=== PATIENT | female | born 1995 | race African-American/Black ===

== ENCOUNTER 2016-09-27 15:38 | Emergency (ER) | payer SELFPAY ==
[2016-09-27 19:38] LABS: CONTROL LINE UCG INT CTR LINE PRESENT
--- NOTE | 2016-09-27 21:00 | REPUSA ---
CLINICAL HISTORY: Headaches. TECHNIQUE: Multiple axial brain CT scan sections were obtained from base to vertex without contrast a dministration. COMMENTS: The study shows normal configuration of sella turcica. There are no intra or extra-axial collections. There is no mass effect or midline shift. There is no evidence of hematoma formation. No hydrocephal us is present. No abnormal calcifications are noted. No significant abnormalities are seen either in the posterior fossa or supratentorial compartment. The sinuses and mastoid air cells are patent. IMPRESSION: No evidence of acute intracranial pathology. Thank you for your kind referral of this patient.
--- NOTE | 2016-09-27 22:05 | EDDOCDS ---
Nurse's Notes [facility] Name: Radha Pina Age: 21 yrs Sex: Female : 1995 Arrival Date: 09/27/2016 Time: 15:38 Bed 6 Private MD: NO PRIMARY PHYSICIAN, . Diagnosis: Urinary tract infection, site not specified Presentation: 09/27 15:49 Presenting complaint: Patient states: I have spinal fluid that builds up into my head [facility] and I need it drained out. I get light headed when I stand up and I get back pain that makes it hard for me to move around. Acute neurological deficits are not present. Mechanism of Injury: No Mechanism of Injury. Adult Sepsis Screening: The patient does not have new or worsening altered mentation. Patient's respiratory rate is less than 22. Systolic blood pressure is greater than 100. Patient has a qSOFA score of 0- Negative Sepsis Screen. Suicide/Homicide risk assessment- the patient denies having any suicidal and/or homicidal ideations and does not present with any other emotional, behavioral or mental health complaints. 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 Transition of care: patient was not received from another setting of care. 15:49 Acuity: RADHA Level 3 [facility] 15:49 Method Of Arrival: Walkin/Carried/Asstd [facility] Triage Assessment: 15:53 General: Appears in no apparent distress, comfortable, obese, Behavior is cooperative. [facility] Pain: Location: head and back Pain currently is 9 out of 10 on a pain scale. Pt requests HIV screening. Order Generated. Neurological: Level of Consciousness is awake, alert, Oriented to person, place, time. Respiratory: Airway is patent Respiratory effort is even, unlabored, Respiratory pattern is regular, symmetrical. Musculoskeletal: Range of motion intact in all extremities. Historical: - Allergies: Bees; - Home Meds: 1. none - PMHx: Benign Intracranial Hypertension (pseudotumor ceribri); Obstructive Sleep apnea; GERD; - PSHx: Cholecystectomy; - Social history: Smoking status: Patient states was never smoker of tobacco. No barriers to communication noted. - Family history: Not pertinent. - : The pt / caregiver states he / she is not on anticoagulants. Home medication list is obtained from the patient. - Exposure Risk Screening:: None identified. Screenin:18 Screening information is obtained from the patient. Fall risk: No risks identified. js15 Assistance ADL's: requires no assistance with activities of daily living. Abuse/DV Screen: The patient / caregiver reports he/she is: not in a situation that causes fear, pain or injury. Nutritional screening: No deficits noted. Advance Directives: There is no active DNR order. home support is adequate. Assessment: 20:11 General: Appears in no apparent distress, Behavior is appropriate for age, cooperative. js15 Pain: Location: thoracic area and lumbar area Pain currently is 8 out of 10 on a pain scale. Neurological: Level of Consciousness is awake, alert, obeys commands, Oriented to person, place, time, Moves all extremities. Full function Gait is steady, Speech is normal, Facial symmetry appears normal, Reports dizziness. Cardiovascular: Capillary refill < 3 seconds Heart tones S1 S2 present Rhythm is regular. Respiratory: Airway is patent Respiratory effort is even, unlabored, Respiratory pattern is regular, symmetrical, Breath sounds are clear bilaterally. GI: Abdomen is obese, Bowel sounds present X 4 quads. Abd is soft and non tender X 4 quads. Derm: Skin is intact, is healthy with good turgor, Skin is normal. 21:20 Reassessment: Patient appears in no apparent distress at this time. Pt resting on js15 stretcher, using cell phone; respirations even and unlabored; skin normal, warm, dry. 22:00 Reassessment: Patient appears in no apparent distress at this time. Pt sitting up, js15 talking on cell phone; respirations even and unlabored; skin normal, warm, dry. Vital Signs: 15:41 BP 152 / 69; Pulse 90; Resp 18; Temp 98.9(O); Pulse Ox 98% on R/A; Weight 135.17 kg gr2 (M); Height 5 ft. 9 in. (175.26 cm) (R); Pain 5/10; 19:58 BP 146 / 91 (auto/); js15 20:00 Pulse 78 MON; Pulse Ox 98% ; js15 21:50 BP 130 / 60; Pulse 80; Resp 18; Temp 98.4(TE); Pulse Ox 98% on R/A; Pain 8/10; william 15:41 Body Mass Index 44.01 (135.17 kg, 175.26 cm) gr2 Vitals: 15:41 Log In Time: September 27, 2016 at 15:41. gr2 21:57 HIV Screen Result: Negative. jf3 ED Course: 15:40 Patient visited by Drew Caceres. gr2 15:40 Patient moved to Waiting gr2 15:41 NO PRIMARY PHYSICIAN, . is Private Physician. gr2 15:43 Patient visited by Drew Caceres. gr2 15:43 Patient moved to Pre RCE gr2 15:51 Triage Initiated cjh 18:53 Patient moved to Triage 3 kr3 19:05 Katina Estevez PA-C is PHCP. dt4 19:05 Edd Castaneda DO is Attending Physician. dt4 19:05 Patient visited by Katina Estevez PA-C. dt4 19:21 Patient moved to TR2 cz 19:25 UCG- In Lab Sent. jf3 19:25 UA Sent. jf3 19:43 Patient moved to 6 cz 20:09 Edd Castaneda DO is Attending Physician. cs11 20:10 Patient visited by Maura Massey RN. js15 20:18 The patient / caregiver is instructed regarding the plan of care and ED course. js15 20:44 [facility] was scanned into [employer] and attached to record. gjb 21:09 CT Head Without Contrast Returned. EDMS 21:15 Patient visited by Alice Miller PCA. william 21:40 Andrés Shoemaker is Referral Physician. cs11 21:50 Patient visited by Alice Miller PCA. william 22:00 No IV's were initiated during this patient's visit. No procedures done that require [facility] assistance. Order Results: Lab Order: UA; SPEC'M 09/27/16 19:22 Test: APPEARANCE, URINE; Value: CLOUDY; Range: CLEAR; Abnormal: Above high normal; Status: F Test: COLOR, URINE; Value: SAYDA; Range: YELLOW; Status: F Test: PH,URINE; Value: 5.0; Range: 5.0-9.0; Units: UNITS; Status: F Test: SPECIFIC GRAVITY URINE AUTO; Value: 1.016; Range: 1.002-1.035; Status: F Test: PROTEIN, URINE AUTO; Value: 1+; Range: NEGATIVE; Abnormal: Above high normal; Units: mg/dL; Status: F Test: GLUCOSE, URINE (UA) AUTO; Value: NEGATIVE; Range: NEGATIVE; Units: mg/dL; Status: F Test: KETONE, URINE AUTO; Value: NEGATIVE; Range: NEGATIVE; Units: mg/dL; Status: F Test: UROBILINOGEN, URINE AUTO; Value: 0.2; Range: 0.0-2.0; Units: mg/dL; Status: F Test: BILIRUBIN, URINE AUTO; Value: NEGATIVE; Range: NEGATIVE; Status: F Test: NITRITE, URINE AUTO; Value: NEGATIVE; Range: NEGATIVE; Status: F Test: LEUKOCYTE ESTERASE, URINE AUTO; Value: 3+; Range: NEGATIVE; Abnormal: Above high normal; Status: F Test: BLOOD, URINE BLOOD; Value: 3+; Range: NEGATIVE; Abnormal: Above high normal; Status: F Test: SPERM, URINE AUTO; Range: NONE; Status: I Test: WBC, URINE AUTO; Value: 62; Range: 0-3; Abnormal: Above high normal; Units: /HPF; Status: F Test: RBC, URINE AUTO; Value: 11; Range: 0-3; Abnormal: Above high normal; Units: /HPF; Status: F Test: BACTERIA, URINE AUTO; Value: 3+; Range: NEGATIVE; Abnormal: Above high normal; Status: F Test: SQUAMOUS EPITHELIAL CELL UR AU; Value: 82; Range: 0-6; Units: /HPF; Status: F Test: MUCUS, URINE; Value: SMALL; Range: NEGATIVE; Status: F Test: HYALINE CAST, URINE AUTO; Value: 0; Range: 0-1; Units: /LPF; Status: F Lab Order: UCG- In Lab; SPEC'M 09/27/16 19:22 Test: URINE PREG TEST; Value: NEGATIVE; Range: NEGATIVE; Status: F Radiology Order: CT Head Without Contrast Test: CT Head Without Contrast REASON FOR EXAMINATION: headache; ; CLINICAL HISTORY: Headaches.; TECHNIQUE: Multiple axial brain CT scan sections were obtained from base to vertex without contrast a; dministration.; COMMENTS:; The study shows normal configuration of sella turcica. There are no intra or extra-axial collections.; There is no mass effect or midline shift. There is no evidence of hematoma formation. No hydrocephal; us is present. No abnormal calcifications are noted.; No significant abnormalities are seen either in the posterior fossa or supratentorial compartment.; The sinuses and mastoid air cells are patent.; IMPRESSION:; No evidence of acute intracranial pathology.; Thank you for your kind referral of this patient.; ; Outcome: 21:42 Discharge ordered by Provider. cs11 22:00 Discharge Assessment: Patient awake, alert and oriented x 3. No cognitive and/or js15 functional deficits noted. Patient verbalized understanding of disposition instructions. patient administered narcotics - no. The following High Risk Discharge criteria are identified: None. Discharged to home ambulatory. Condition: unchanged. Discharge instructions given to patient, Instructed on discharge instructions, follow up and referral plans. medication usage, Demonstrated understanding of instructions, medications, Pt was receptive of discharge instructions/ teaching. Prescriptions given X 1. CT Study completed. Property sent home with patient. 22:03 Patient left the ED. js15 Signatures: Dispatcher [employer] EDMS Storm Shepherd RN RN cz Maida McclendonRN RN kr3 Alice Miller, DESKTOP TECHNICIAN DESKTOP TECHNICIAN Karma NixRN RN [facility] Edd Castaneda, DO cs11 Drew Caceres gr2 Katina Estevez PA-C PA-C dt4 Maura MasseyRN RN js15 Shaquille Alvarado,DEMOND RN jf3 Marcela Olmos MTDD
--- NOTE | 2016-09-27 22:05 | EDDOCDS ---
Physician Documentation [facility] Name: Radha Pina Age: 21 yrs Sex: Female : 1995 Arrival Date: 09/27/2016 Time: 15:38 Bed 6 Private MD: NO PRIMARY PHYSICIAN, . Disposition: 09/27/16 21:42 Discharged to Home/Self Care. Impression: Urinary tract infection, site not specified. - Condition is Stable. - Prescriptions for Cipro 500 mg Oral Tablet - take 1 tablet by ORAL route every 12 hours; 10 tablet. - Medication Reconciliation, Local Pharmacy Hours form. - Follow up: Andrés Shoemaker; When: Call to arrange an appointment; Reason: Recheck today's complaints. - Problem is new. - Symptoms are unchanged. - Notes: follow with neurologist for the pseudotumor cerebri you were told you had in 2013. Historical: - Allergies: Bees; - Home Meds: 1. none - PMHx: Benign Intracranial Hypertension (pseudotumor ceribri); Obstructive Sleep apnea; GERD; - PSHx: Cholecystectomy; - Social history: Smoking status: Patient states was never smoker of tobacco. No barriers to communication noted. - Family history: Not pertinent. - : The pt / caregiver states he / she is not on anticoagulants. Home medication list is obtained from the patient. - Exposure Risk Screening:: None identified. Vital Signs: 09/27 15:41 BP 152 / 69; Pulse 90; Resp 18; Temp 98.9(O); Pulse Ox 98% on R/A; Weight 135.17 kg / gr2 298 lbs (M); Height 5 ft. 9 in. (175.26 cm) (R); Pain 5/10; 19:58 BP 146 / 91 (auto/); js15 20:00 Pulse 78 MON; Pulse Ox 98% ; js15 21:50 BP 130 / 60; Pulse 80; Resp 18; Temp 98.4(TE); Pulse Ox 98% on R/A; Pain 8/10; william 15:41 Body Mass Index 44.01 (135.17 kg, 175.26 cm) gr2 MDM: 15:54 HIV Screen, Nursing ordered. cjh 19:19 UA Ordered. EDMS 19:19 UCG- In Lab Ordered. EDMS 19:44 Financial registration complete. gjb 20:11 UA Reviewed. cs11 20:11 UCG- In Lab Reviewed. cs11 20:12 CT Head Without Contrast Ordered. EDMS 20:44 [facility] [place] Payment Agreement was scanned into [employer] and attached to record. gjb 21:37 CT Head Without Contrast Reviewed. cs11 Signatures: Dispatcher [employer] EDMS Karma Rome RN RN [facility] Edd Castaneda DO DO cs11 Maura Massey RN RN js15 Marcela Olmos The chart was reviewed and I authenticate all verbal orders and agree with the evaluation and treatment provided.Attachments: 20:44 [facility] Payment Agreement gjb MTDD
--- NOTE | 2016-09-29 23:03 | EDDOCDS ---
Physician Documentation [facility] Name: Radha Pina Age: 21 yrs Sex: Female : 1995 Arrival Date: 09/27/2016 Time: 15:38 Bed 6 Private MD: NO PRIMARY PHYSICIAN, . Disposition: 09/27/16 21:42 Discharged to Home/Self Care. Impression: Urinary tract infection, site not specified. - Condition is Stable. - Prescriptions for Cipro 500 mg Oral Tablet - take 1 tablet by ORAL route every 12 hours; 10 tablet. - Medication Reconciliation, Local Pharmacy Hours form. - Follow up: Andrés Shoemaker; When: Call to arrange an appointment; Reason: Recheck today's complaints. - Problem is new. - Symptoms are unchanged. - Notes: follow with neurologist for the pseudotumor cerebri you were told you had in 2013. Historical: - Allergies: Bees; - Home Meds: 1. none - PMHx: Benign Intracranial Hypertension (pseudotumor ceribri); Obstructive Sleep apnea; GERD; - PSHx: Cholecystectomy; - Social history: Smoking status: Patient states was never smoker of tobacco. No barriers to communication noted. - Family history: Not pertinent. - : The pt / caregiver states he / she is not on anticoagulants. Home medication list is obtained from the patient. - Exposure Risk Screening:: None identified. Vital Signs: 09/27 15:41 BP 152 / 69; Pulse 90; Resp 18; Temp 98.9(O); Pulse Ox 98% on R/A; Weight 135.17 kg / gr2 298 lbs (M); Height 5 ft. 9 in. (175.26 cm) (R); Pain 5/10; 19:58 BP 146 / 91 (auto/); js15 20:00 Pulse 78 MON; Pulse Ox 98% ; js15 21:50 BP 130 / 60; Pulse 80; Resp 18; Temp 98.4(TE); Pulse Ox 98% on R/A; Pain 8/10; william 15:41 Body Mass Index 44.01 (135.17 kg, 175.26 cm) gr2 MDM: 15:54 HIV Screen, Nursing ordered. cjh 19:19 UA Ordered. EDMS 19:19 UCG- In Lab Ordered. EDMS 19:44 Financial registration complete. gjb 20:11 UA Reviewed. cs11 20:11 UCG- In Lab Reviewed. cs11 20:12 CT Head Without Contrast Ordered. EDMS 20:44 [facility] [place] Agreement was scanned into [employer] and attached to record. gjb 21:37 CT Head Without Contrast Reviewed. cs11 09/28 15:41 Radiology Report was scanned into [employer] and attached to record. kf3 16:54 T-Sheet-- Draft Copy was scanned into [employer] and attached to record. klr Signatures: Dispatcher [employer] EDCO James Grace, Reg Reg kf3 Karma Rome,RN RN [facility] Edd Castaneda DO DO cs11 Maura Massey,RN RN js15 Marcela Olmos Kathie klr The chart was reviewed and I authenticate all verbal orders and agree with the evaluation and treatment provided.Attachments: 09/27 20:44 [facility] Agreement gjb 16:54 T-Sheet-- Draft Copy klr Chart Complete MTDD
--- NOTE | 2016-09-29 23:03 | EDDOCDS ---
Physician Documentation [facility] Name: Radha Pina Age: 21 yrs Sex: Female : 1995 Arrival Date: 09/27/2016 Time: 15:38 Bed 6 Private MD: NO PRIMARY PHYSICIAN, . Disposition: 09/27/16 21:42 Discharged to Home/Self Care. Impression: Urinary tract infection, site not specified. - Condition is Stable. - Prescriptions for Cipro 500 mg Oral Tablet - take 1 tablet by ORAL route every 12 hours; 10 tablet. - Medication Reconciliation, Local Pharmacy Hours form. - Follow up: Andrés Shoemaker; When: Call to arrange an appointment; Reason: Recheck today's complaints. - Problem is new. - Symptoms are unchanged. - Notes: follow with neurologist for the pseudotumor cerebri you were told you had in 2013. Historical: - Allergies: Bees; - Home Meds: 1. none - PMHx: Benign Intracranial Hypertension (pseudotumor ceribri); Obstructive Sleep apnea; GERD; - PSHx: Cholecystectomy; - Social history: Smoking status: Patient states was never smoker of tobacco. No barriers to communication noted. - Family history: Not pertinent. - : The pt / caregiver states he / she is not on anticoagulants. Home medication list is obtained from the patient. - Exposure Risk Screening:: None identified. Vital Signs: 09/27 15:41 BP 152 / 69; Pulse 90; Resp 18; Temp 98.9(O); Pulse Ox 98% on R/A; Weight 135.17 kg / gr2 298 lbs (M); Height 5 ft. 9 in. (175.26 cm) (R); Pain 5/10; 19:58 BP 146 / 91 (auto/); js15 20:00 Pulse 78 MON; Pulse Ox 98% ; js15 21:50 BP 130 / 60; Pulse 80; Resp 18; Temp 98.4(TE); Pulse Ox 98% on R/A; Pain 8/10; william 15:41 Body Mass Index 44.01 (135.17 kg, 175.26 cm) gr2 MDM: 15:54 HIV Screen, Nursing ordered. cjh 19:19 UA Ordered. EDMS 19:19 UCG- In Lab Ordered. EDMS 19:44 Financial registration complete. gjb 20:11 UA Reviewed. cs11 20:11 UCG- In Lab Reviewed. cs11 20:12 CT Head Without Contrast Ordered. EDMS 20:44 [facility] [place] Payment Agreement was scanned into [employer] and attached to record. gjb 21:37 CT Head Without Contrast Reviewed. cs11 09/28 15:41 Radiology Report was scanned into [employer] and attached to record. kf3 16:54 T-Sheet-- Draft Copy was scanned into [employer] and attached to record. klr Signatures: Dispatcher [employer] EDWV James Grace, Reg Reg kf3 Karma Rome,RN RN [facility] Edd Castaneda DO DO cs11 Maura Massey,RN RN js15 Marcela Olmos Kathie klr The chart was reviewed and I authenticate all verbal orders and agree with the evaluation and treatment provided.Attachments: 09/27 20:44 [facility] [place] Payment Agreement gjb 16:54 T-Sheet-- Draft Copy klr Chart Complete MTDD
--- NOTE | 2016-09-29 23:04 | EDDOCDS ---
Nurse's Notes [facility] Name: Radha Pina Age: 21 yrs Sex: Female : 1995 Arrival Date: 09/27/2016 Time: 15:38 Bed 6 Private MD: NO PRIMARY PHYSICIAN, . Diagnosis: Urinary tract infection, site not specified Presentation: 09/27 15:49 Presenting complaint: Patient states: I have spinal fluid that builds up into my head [facility] and I need it drained out. I get light headed when I stand up and I get back pain that makes it hard for me to move around. Acute neurological deficits are not present. Mechanism of Injury: No Mechanism of Injury. Adult Sepsis Screening: The patient does not have new or worsening altered mentation. Patient's respiratory rate is less than 22. Systolic blood pressure is greater than 100. Patient has a qSOFA score of 0- Negative Sepsis Screen. Suicide/Homicide risk assessment- the patient denies having any suicidal and/or homicidal ideations and does not present with any other emotional, behavioral or mental health complaints. 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 Transition of care: patient was not received from another setting of care. 15:49 Acuity: RADHA Level 3 [facility] 15:49 Method Of Arrival: Walkin/Carried/Asstd [facility] Triage Assessment: 15:53 General: Appears in no apparent distress, comfortable, obese, Behavior is cooperative. [facility] Pain: Location: head and back Pain currently is 9 out of 10 on a pain scale. Pt requests HIV screening. Order Generated. Neurological: Level of Consciousness is awake, alert, Oriented to person, place, time. Respiratory: Airway is patent Respiratory effort is even, unlabored, Respiratory pattern is regular, symmetrical. Musculoskeletal: Range of motion intact in all extremities. Historical: - Allergies: Bees; - Home Meds: 1. none - PMHx: Benign Intracranial Hypertension (pseudotumor ceribri); Obstructive Sleep apnea; GERD; - PSHx: Cholecystectomy; - Social history: Smoking status: Patient states was never smoker of tobacco. No barriers to communication noted. - Family history: Not pertinent. - : The pt / caregiver states he / she is not on anticoagulants. Home medication list is obtained from the patient. - Exposure Risk Screening:: None identified. Screenin:18 Screening information is obtained from the patient. Fall risk: No risks identified. js15 Assistance ADL's: requires no assistance with activities of daily living. Abuse/DV Screen: The patient / caregiver reports he/she is: not in a situation that causes fear, pain or injury. Nutritional screening: No deficits noted. Advance Directives: There is no active DNR order. home support is adequate. Assessment: 20:11 General: Appears in no apparent distress, Behavior is appropriate for age, cooperative. js15 Pain: Location: thoracic area and lumbar area Pain currently is 8 out of 10 on a pain scale. Neurological: Level of Consciousness is awake, alert, obeys commands, Oriented to person, place, time, Moves all extremities. Full function Gait is steady, Speech is normal, Facial symmetry appears normal, Reports dizziness. Cardiovascular: Capillary refill < 3 seconds Heart tones S1 S2 present Rhythm is regular. Respiratory: Airway is patent Respiratory effort is even, unlabored, Respiratory pattern is regular, symmetrical, Breath sounds are clear bilaterally. GI: Abdomen is obese, Bowel sounds present X 4 quads. Abd is soft and non tender X 4 quads. Derm: Skin is intact, is healthy with good turgor, Skin is normal. 21:20 Reassessment: Patient appears in no apparent distress at this time. Pt resting on js15 stretcher, using cell phone; respirations even and unlabored; skin normal, warm, dry. 22:00 Reassessment: Patient appears in no apparent distress at this time. Pt sitting up, js15 talking on cell phone; respirations even and unlabored; skin normal, warm, dry. Vital Signs: 15:41 BP 152 / 69; Pulse 90; Resp 18; Temp 98.9(O); Pulse Ox 98% on R/A; Weight 135.17 kg gr2 (M); Height 5 ft. 9 in. (175.26 cm) (R); Pain 5/10; 19:58 BP 146 / 91 (auto/); js15 20:00 Pulse 78 MON; Pulse Ox 98% ; js15 21:50 BP 130 / 60; Pulse 80; Resp 18; Temp 98.4(TE); Pulse Ox 98% on R/A; Pain 8/10; william 15:41 Body Mass Index 44.01 (135.17 kg, 175.26 cm) gr2 Vitals: 15:41 Log In Time: September 27, 2016 at 15:41. gr2 21:57 HIV Screen Result: Negative. jf3 ED Course: 15:40 Patient visited by Drew Caceres. gr2 15:40 Patient moved to Waiting gr2 15:41 NO PRIMARY PHYSICIAN, . is Private Physician. gr2 15:43 Patient visited by Drew Caceres. gr2 15:43 Patient moved to Pre RCE gr2 15:51 Triage Initiated cjh 18:53 Patient moved to Triage 3 kr3 19:05 Katina Estevez PA-C is PHCP. dt4 19:05 Edd Castaneda DO is Attending Physician. dt4 19:05 Patient visited by Katina Estevez PA-C. dt4 19:21 Patient moved to TR2 cz 19:25 UCG- In Lab Sent. jf3 19:25 UA Sent. jf3 19:43 Patient moved to 6 cz 20:09 Edd Castaneda DO is Attending Physician. cs11 20:10 Patient visited by Maura Massey RN. js15 20:18 The patient / caregiver is instructed regarding the plan of care and ED course. js15 20:44 [facility] Payment Agreement was scanned into [employer] and attached to record. gjb 21:09 CT Head Without Contrast Returned. EDMS 21:15 Patient visited by Alice Miller PCA. william 21:40 Andrés Shoemaker is Referral Physician. cs11 21:50 Patient visited by Alice Miller PCA. william 22:00 No IV's were initiated during this patient's visit. No procedures done that require 15 assistance. 09/28 15:41 Radiology Report was scanned into [employer] and attached to record. kf3 16:54 T-Sheet-- Draft Copy was scanned into [employer] and attached to record. klr Order Results: Lab Order: UA; SPEC'M 09/27/16 19:22 Test: APPEARANCE, URINE; Value: CLOUDY; Range: CLEAR; Abnormal: Above high normal; Status: F Test: COLOR, URINE; Value: SAYDA; Range: YELLOW; Status: F Test: PH,URINE; Value: 5.0; Range: 5.0-9.0; Units: UNITS; Status: F Test: SPECIFIC GRAVITY URINE AUTO; Value: 1.016; Range: 1.002-1.035; Status: F Test: PROTEIN, URINE AUTO; Value: 1+; Range: NEGATIVE; Abnormal: Above high normal; Units: mg/dL; Status: F Test: GLUCOSE, URINE (UA) AUTO; Value: NEGATIVE; Range: NEGATIVE; Units: mg/dL; Status: F Test: KETONE, URINE AUTO; Value: NEGATIVE; Range: NEGATIVE; Units: mg/dL; Status: F Test: UROBILINOGEN, URINE AUTO; Value: 0.2; Range: 0.0-2.0; Units: mg/dL; Status: F Test: BILIRUBIN, URINE AUTO; Value: NEGATIVE; Range: NEGATIVE; Status: F Test: NITRITE, URINE AUTO; Value: NEGATIVE; Range: NEGATIVE; Status: F Test: LEUKOCYTE ESTERASE, URINE AUTO; Value: 3+; Range: NEGATIVE; Abnormal: Above high normal; Status: F Test: BLOOD, URINE BLOOD; Value: 3+; Range: NEGATIVE; Abnormal: Above high normal; Status: F Test: SPERM, URINE AUTO; Range: NONE; Status: I Test: WBC, URINE AUTO; Value: 62; Range: 0-3; Abnormal: Above high normal; Units: /HPF; Status: F Test: RBC, URINE AUTO; Value: 11; Range: 0-3; Abnormal: Above high normal; Units: /HPF; Status: F Test: BACTERIA, URINE AUTO; Value: 3+; Range: NEGATIVE; Abnormal: Above high normal; Status: F Test: SQUAMOUS EPITHELIAL CELL UR AU; Value: 82; Range: 0-6; Units: /HPF; Status: F Test: MUCUS, URINE; Value: SMALL; Range: NEGATIVE; Status: F Test: HYALINE CAST, URINE AUTO; Value: 0; Range: 0-1; Units: /LPF; Status: F Lab Order: UCG- In Lab; SPEC'M 09/27/16 19:22 Test: URINE PREG TEST; Value: NEGATIVE; Range: NEGATIVE; Status: F Radiology Order: CT Head Without Contrast Test: CT Head Without Contrast REASON FOR EXAMINATION: headache; ; CLINICAL HISTORY: Headaches.; TECHNIQUE: Multiple axial brain CT scan sections were obtained from base to vertex without contrast a; dministration.; COMMENTS:; The study shows normal configuration of sella turcica. There are no intra or extra-axial collections.; There is no mass effect or midline shift. There is no evidence of hematoma formation. No hydrocephal; us is present. No abnormal calcifications are noted.; No significant abnormalities are seen either in the posterior fossa or supratentorial compartment.; The sinuses and mastoid air cells are patent.; IMPRESSION:; No evidence of acute intracranial pathology.; Thank you for your kind referral of this patient.; ; Outcome: 09/27 21:42 Discharge ordered by Provider. cs11 22:00 Discharge Assessment: Patient awake, alert and oriented x 3. No cognitive and/or js15 functional deficits noted. Patient verbalized understanding of disposition instructions. patient administered narcotics - no. The following High Risk Discharge criteria are identified: None. Discharged to home ambulatory. Condition: unchanged. Discharge instructions given to patient, Instructed on discharge instructions, follow up and referral plans. medication usage, Demonstrated understanding of instructions, medications, Pt was receptive of discharge instructions/ teaching. Prescriptions given X 1. CT Study completed. Property sent home with patient. 22:03 Patient left the ED. js15 Signatures: Dispatcher [employer] EDMS Storm Shepherd, RN RN cz aMida McclendonRN RN kr3 James Grace, Reg Reg kf3 Alice Miller, PRODUCTION DESIGNER PRODUCTION DESIGNER william Karma Rome,RN RN [facility] Edd Castaneda, DO cs11 Drew Caceres gr2 Katina Estevez, PAWarren PA-C dt4 Maura MasseyRN RN js15 Shaquille Alvarado RN RN jf3 Beck, Gabriela gjb Redder, Kathie klr Chart Complete MTDD
== END 2016-09-27 22:03 | disposition home or self-care (01) ==
LOC: EDSEX 15:38 → M ED 15:38
DX: N39.0 Urinary tract infection, site not specified (principal); G93.2 Benign intracranial hypertension; G47.33 Obstructive sleep apnea (adult) (pediatric); K21.9 Gastro-esophageal reflux disease without esophagitis; Z91.030 Bee allergy status

== ENCOUNTER 2016-10-25 23:12 | Emergency (ER) | payer SELFPAY | END 2016-10-25 23:27 | disposition left against medical advice (07) | LOC: M ED 23:12 | DX: N93.8 Other specified abnormal uterine and vaginal bleeding (principal); Z53.29 Procedure and treatment not carried out because of patient's decision for other reasons ==

== ENCOUNTER 2016-10-26 11:47 | Emergency (ER) | payer SELFPAY ==
--- NOTE | 2016-10-26 13:57 | EDDOCDS ---
Physician Documentation [facility] Name: Radha Pina Age: 21 yrs Sex: Female : 1995 Arrival Date: 10/26/2016 Time: 11:47 Bed TR7 Private MD: NO PRIMARY PHYSICIAN, . Disposition: 10/26/16 13:39 Discharged to Home/Self Care. Impression: Abnormal uterine and vaginal bleeding, unspecified. - Condition is Stable. - Discharge Instructions: Abnormal Uterine Bleeding, [id number]. - Medication Reconciliation, Local Pharmacy Hours form. - Follow up: Angela Camejo MD; When: Call to arrange an appointment; Reason: Further diagnostic work-up, Recheck today's complaints, Continuance of care. - Problem is new. - Symptoms are unchanged. Historical: - Allergies: nkda; - Home Meds: 1. Motrin 800 mg Oral tab prn - PMHx: Benign Intracranial Hypertension (pseudotumor ceribri); GERD; obstructive sleep apnea; - PSHx: Cholecystectomy; wisdom teeth; - Social history: Smoking status: Patient states was never smoker of tobacco. No barriers to communication noted, The patient speaks fluent Albanian, Speaks appropriately for age. - : The pt / caregiver states he / she is not on anticoagulants. Home medication list is obtained from the patient. - Exposure Risk Screening:: None identified. 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 9 in. (175.26 cm) (R); Pain 2/10; 13:51 BP 120 / 70; Pulse 84; Resp 18; Temp 98.8; Pulse Ox 100% ; Pain 0/10; cjh 11:49 Body Mass Index 43.56 (133.81 kg, 175.26 cm) gr2 MDM: 13:51 [facility] Payment Agreement was scanned into [employer] and attached to record. jp5 13:51 Financial registration complete. jp5 Signatures: Dispatcher [employer] EDMee Martinez RN RN Fausto Montenegro PA PA btw Karma Rome,RN RN [facility] Yannick Montoya jp5 The chart was reviewed and I authenticate all verbal orders and agree with the evaluation and treatment provided.Corrections: (The following items were deleted from the chart) 13:40 13:27 CBC WITH DIFFERENTIAL+LAB ordered. EDMS EDMS 13:40 13:27 BASIC METABOLIC PROFILE+LAB ordered. EDMS EDMS Attachments: 13:51 [facility] Payment Agreement jp5 MTDD
--- NOTE | 2016-10-26 13:57 | EDDOCDS ---
Nurse's Notes [facility] Name: Radha Pina Age: 21 yrs Sex: Female : 1995 Arrival Date: 10/26/2016 Time: 11:47 Bed TR7 Private MD: NO PRIMARY PHYSICIAN, . Diagnosis: Abnormal uterine and vaginal bleeding, unspecified Presentation: 10/26 11:57 Presenting complaint: Patient states: sean been on my period for past 6 months. 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 Risk factors: The patient reports no loss of conciousness prior to arrival. This patient has not had a hysterectomy. This patient has not begun menopause. Adult Sepsis Screening: The patient does not have new or worsening altered mentation. Patient's respiratory rate is less than 22. Systolic blood pressure is greater than 100. Patient has a qSOFA score of 0- Negative Sepsis Screen. Suicide/Homicide risk assessment- the patient denies having any suicidal and/or homicidal ideations and does not present with any other emotional, behavioral or mental health complaints. 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 Transition of care: patient was not received from another setting of care. 11:57 Acuity: RADHA Level 4 srm 11:57 Method Of Arrival: Walkin/Carried/Asstd srm Triage Assessment: 11:59 General: Appears in no apparent distress, Behavior is appropriate for age, cooperative. srm Pain: Denies pain. HIV screening NA for this visit Offered previously. : Reports vaginal bleeding that is. 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 Motrin 800 mg Oral tab prn - PMHx: Benign Intracranial Hypertension (pseudotumor ceribri); GERD; obstructive sleep apnea; - PSHx: Cholecystectomy; wisdom teeth; - Social history: Smoking status: Patient states was never smoker of tobacco. No barriers to communication noted, The patient speaks fluent Pakistani, Speaks appropriately for age. - : The pt / caregiver states he / she is not on anticoagulants. Home medication list is obtained from the patient. - Exposure Risk Screening:: None identified. Screenin:51 Screening information is obtained from the patient. Fall risk: No risks identified. [facility] Assistance ADL's: requires no assistance with activities of daily living. Abuse/DV Screen: The patient / caregiver reports he/she is: not in a situation that causes fear, pain or injury. Nutritional screening: No deficits noted. Advance Directives: There is no active DNR order. home support is adequate. Assessment: 13:51 General: Appears in no apparent distress, comfortable, Behavior is appropriate for age, [facility] cooperative. Pain: Denies pain. Neurological: Level of Consciousness is awake, alert, Oriented to person, place, time. Respiratory: Airway is patent Respiratory effort is even, unlabored, Respiratory pattern is regular, symmetrical. : no deficits noted. : No deficits noted. : Reports vaginal bleeding that is. Derm: Skin is normal. Vital Signs: 11:49 BP 132 / 65; Pulse 89; Resp 18 S; Temp 97.6(O); Pulse Ox 96% on R/A; Weight 133.81 kg gr2 (R); Height 5 ft. 9 in. (175.26 cm) (R); Pain 2/10; 13:51 BP 120 / 70; Pulse 84; Resp 18; Temp 98.8; Pulse Ox 100% ; Pain 0/10; cjh 11:49 Body Mass Index 43.56 (133.81 kg, 175.26 cm) gr2 Vitals: 11:49 Log In Time: October 26, 2016 at 11:49. gr2 ED Course: 11:48 Patient visited by Drew Caceres. gr2 11:48 NO PRIMARY PHYSICIAN, . is Private Physician. gr2 11:48 Patient moved to Waiting gr2 11:50 Patient visited by Drew Caceres. gr2 11:50 Patient moved to Pre RCE gr2 11:58 Triage Initiated srm 13:27 Fausto Castillo PA is PHCP. btw 13:27 Gaby Cano MD is Attending Physician. btw 13:27 Patient visited by Fausto Castillo PA. btw 13:27 Patient moved to Triage 1 [facility] 13:38 Angela Camejo MD is Referral Physician. btw 13:49 Patient moved to [address] 13:51 [facility] Payment Agreement was scanned into [employer] and attached to record. [facility] 13:51 The patient / caregiver is instructed regarding the plan of care and ED course. [facility] 13:51 No IV's were initiated during this patient's visit. No procedures done that require [facility] assistance. Order Results: There are currently no results for this order. Outcome: 13:39 Discharge ordered by Provider. btw 13:51 Discharge Assessment: Patient awake, alert and oriented x 3. No cognitive and/or [facility] functional deficits noted. Patient verbalized understanding of disposition instructions. patient administered narcotics - no. The following High Risk Discharge criteria are identified: None. Discharged to home ambulatory. Condition: good Condition: stable Condition: improved. Discharge instructions given to patient, Instructed on discharge instructions, follow up and referral plans. Demonstrated understanding of instructions, Pt was receptive of discharge instructions/ teaching. No special radiology studies were completed. Property :Personal belongings accompany Pt. 13:56 Patient left the ED. [facility] Signatures: William Mejia, RN Mee Marcos RN Fausto Payne PA PA btw Karma Rome RN RN [facility] Drew Caceres gr2 Yannick Montoya jp5 SUJATA
--- NOTE | 2016-10-28 14:57 | EDDOCDS ---
Physician Documentation [facility] Name: Radha Pina Age: 21 yrs Sex: Female : 1995 Arrival Date: 10/26/2016 Time: 11:47 Bed TR7 Private MD: NO PRIMARY PHYSICIAN, . Disposition: 10/26/16 13:39 Discharged to Home/Self Care. Impression: Abnormal uterine and vaginal bleeding, unspecified. - Condition is Stable. - Discharge Instructions: Abnormal Uterine Bleeding, [id number]. - Medication Reconciliation, Local Pharmacy Hours form. - Follow up: Angela Camejo MD; When: Call to arrange an appointment; Reason: Further diagnostic work-up, Recheck today's complaints, Continuance of care. - Problem is new. - Symptoms are unchanged. Historical: - Allergies: nkda; - Home Meds: 1. Motrin 800 mg Oral tab prn - PMHx: Benign Intracranial Hypertension (pseudotumor ceribri); GERD; obstructive sleep apnea; - PSHx: Cholecystectomy; wisdom teeth; - Social history: Smoking status: Patient states was never smoker of tobacco. No barriers to communication noted, The patient speaks fluent Occitan, Speaks appropriately for age. - : The pt / caregiver states he / she is not on anticoagulants. Home medication list is obtained from the patient. - Exposure Risk Screening:: None identified. 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 9 in. (175.26 cm) (R); Pain 2/10; 13:51 BP 120 / 70; Pulse 84; Resp 18; Temp 98.8; Pulse Ox 100% ; Pain 0/10; cjh 11:49 Body Mass Index 43.56 (133.81 kg, 175.26 cm) gr2 MDM: 13:51 [facility] Payment Agreement was scanned into [employer] and attached to record. jp5 13:51 Financial registration complete. jp5 21:16 T-Sheet-- Draft Copy was scanned into [employer] and attached to record. klr Signatures: Dispatcher [employer] EDMS Mee Vang, RN RN Fausto Montenegro PA PA btw Hafner, JaneRN RN [facility] Yannick Montoya jp5 Kayley Heller The chart was reviewed and I authenticate all verbal orders and agree with the evaluation and treatment provided.Corrections: (The following items were deleted from the chart) 13:40 13:27 CBC WITH DIFFERENTIAL+LAB ordered. EDMS EDMS 13:40 13:27 BASIC METABOLIC PROFILE+LAB ordered. EDMS EDMS Attachments: 13:51 [facility] Payment Agreement jp5 21:16 T-Sheet-- Draft Copy klr Chart Complete MTDD
--- NOTE | 2016-10-28 14:57 | EDDOCDS ---
Nurse's Notes [facility] Name: Radha Pina Age: 21 yrs Sex: Female : 1995 Arrival Date: 10/26/2016 Time: 11:47 Bed TR7 Private MD: NO PRIMARY PHYSICIAN, . Diagnosis: Abnormal uterine and vaginal bleeding, unspecified Presentation: 10/26 11:57 Presenting complaint: Patient states: sean been on my period for past 6 months. 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 Risk factors: The patient reports no loss of conciousness prior to arrival. This patient has not had a hysterectomy. This patient has not begun menopause. Adult Sepsis Screening: The patient does not have new or worsening altered mentation. Patient's respiratory rate is less than 22. Systolic blood pressure is greater than 100. Patient has a qSOFA score of 0- Negative Sepsis Screen. Suicide/Homicide risk assessment- the patient denies having any suicidal and/or homicidal ideations and does not present with any other emotional, behavioral or mental health complaints. 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 Transition of care: patient was not received from another setting of care. 11:57 Acuity: RADHA Level 4 srm 11:57 Method Of Arrival: Walkin/Carried/Asstd srm Triage Assessment: 11:59 General: Appears in no apparent distress, Behavior is appropriate for age, cooperative. srm Pain: Denies pain. HIV screening NA for this visit Offered previously. : Reports vaginal bleeding that is. 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 Motrin 800 mg Oral tab prn - PMHx: Benign Intracranial Hypertension (pseudotumor ceribri); GERD; obstructive sleep apnea; - PSHx: Cholecystectomy; wisdom teeth; - Social history: Smoking status: Patient states was never smoker of tobacco. No barriers to communication noted, The patient speaks fluent Luxembourger, Speaks appropriately for age. - : The pt / caregiver states he / she is not on anticoagulants. Home medication list is obtained from the patient. - Exposure Risk Screening:: None identified. Screenin:51 Screening information is obtained from the patient. Fall risk: No risks identified. [facility] Assistance ADL's: requires no assistance with activities of daily living. Abuse/DV Screen: The patient / caregiver reports he/she is: not in a situation that causes fear, pain or injury. Nutritional screening: No deficits noted. Advance Directives: There is no active DNR order. home support is adequate. Assessment: 13:51 General: Appears in no apparent distress, comfortable, Behavior is appropriate for age, [facility] cooperative. Pain: Denies pain. Neurological: Level of Consciousness is awake, alert, Oriented to person, place, time. Respiratory: Airway is patent Respiratory effort is even, unlabored, Respiratory pattern is regular, symmetrical. : no deficits noted. : No deficits noted. : Reports vaginal bleeding that is. Derm: Skin is normal. Vital Signs: 11:49 BP 132 / 65; Pulse 89; Resp 18 S; Temp 97.6(O); Pulse Ox 96% on R/A; Weight 133.81 kg gr2 (R); Height 5 ft. 9 in. (175.26 cm) (R); Pain 2/10; 13:51 BP 120 / 70; Pulse 84; Resp 18; Temp 98.8; Pulse Ox 100% ; Pain 0/10; cjh 11:49 Body Mass Index 43.56 (133.81 kg, 175.26 cm) gr2 Vitals: 11:49 Log In Time: October 26, 2016 at 11:49. gr2 ED Course: 11:48 Patient visited by Drew Caceres. gr2 11:48 NO PRIMARY PHYSICIAN, . is Private Physician. gr2 11:48 Patient moved to Waiting gr2 11:50 Patient visited by Drew Caceres. gr2 11:50 Patient moved to Pre RCE gr2 11:58 Triage Initiated srm 13:27 Fausto Castillo PA is PHCP. btw 13:27 Gaby Cano MD is Attending Physician. btw 13:27 Patient visited by Fausto Castillo PA. btw 13:27 Patient moved to Triage 1 [facility] 13:38 Angela Camejo MD is Referral Physician. btw 13:49 Patient moved to [address] 13:51 [facility] Payment Agreement was scanned into [employer] and attached to record. [facility] 13:51 The patient / caregiver is instructed regarding the plan of care and ED course. [facility] 13:51 No IV's were initiated during this patient's visit. No procedures done that require [facility] assistance. 21:16 T-Sheet-- Draft Copy was scanned into [employer] and attached to record. kljenna Order Results: There are currently no results for this order. Outcome: 13:39 Discharge ordered by Provider. btw 13:51 Discharge Assessment: Patient awake, alert and oriented x 3. No cognitive and/or [facility] functional deficits noted. Patient verbalized understanding of disposition instructions. patient administered narcotics - no. The following High Risk Discharge criteria are identified: None. Discharged to home ambulatory. Condition: good Condition: stable Condition: improved. Discharge instructions given to patient, Instructed on discharge instructions, follow up and referral plans. Demonstrated understanding of instructions, Pt was receptive of discharge instructions/ teaching. No special radiology studies were completed. Property :Personal belongings accompany Pt. 13:56 Patient left the ED. [facility] Signatures: William Mejia, RN RN Mee Villeda RN RN Fausto Montenegro PA PA btw Karma Rome RN RN [facility] Drew Caceres Jennalee jp5 Redder, Kathie klr Chart Complete SUJATA
--- NOTE | 2016-10-28 14:57 | EDDOCDS ---
Physician Documentation [facility] Name: Radha Pina Age: 21 yrs Sex: Female : 1995 Arrival Date: 10/26/2016 Time: 11:47 Bed TR7 Private MD: NO PRIMARY PHYSICIAN, . Disposition: 10/26/16 13:39 Discharged to Home/Self Care. Impression: Abnormal uterine and vaginal bleeding, unspecified. - Condition is Stable. - Discharge Instructions: Abnormal Uterine Bleeding, [id number]. - Medication Reconciliation, Local Pharmacy Hours form. - Follow up: Angela Camejo MD; When: Call to arrange an appointment; Reason: Further diagnostic work-up, Recheck today's complaints, Continuance of care. - Problem is new. - Symptoms are unchanged. Historical: - Allergies: nkda; - Home Meds: 1. Motrin 800 mg Oral tab prn - PMHx: Benign Intracranial Hypertension (pseudotumor ceribri); GERD; obstructive sleep apnea; - PSHx: Cholecystectomy; wisdom teeth; - Social history: Smoking status: Patient states was never smoker of tobacco. No barriers to communication noted, The patient speaks fluent Mongolian, Speaks appropriately for age. - : The pt / caregiver states he / she is not on anticoagulants. Home medication list is obtained from the patient. - Exposure Risk Screening:: None identified. 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 9 in. (175.26 cm) (R); Pain 2/10; 13:51 BP 120 / 70; Pulse 84; Resp 18; Temp 98.8; Pulse Ox 100% ; Pain 0/10; cjh 11:49 Body Mass Index 43.56 (133.81 kg, 175.26 cm) gr2 MDM: 13:51 REPLACED BY [facility] Payment Agreement was scanned into [employer]. and attached to record. jp5 13:51 Financial registration complete. jp5 21:16 T-Sheet-- Draft Copy was scanned into [employer]. and attached to record. klr Signatures: Dispatcher [employer]Greek EDMS Mee Vang, RN RN Fausto Montenegro PA PA btw Hafner, JaneRN RN [facility] Yannick Montoya jp5 Kayley Heller The chart was reviewed and I authenticate all verbal orders and agree with the evaluation and treatment provided.Corrections: (The following items were deleted from the chart) 13:40 13:27 CBC WITH DIFFERENTIAL+LAB ordered. EDMS EDMS 13:40 13:27 BASIC METABOLIC PROFILE+LAB ordered. EDMS EDMS Attachments: 13:51 REPLACED BY [facility] Payment Agreement jp5 21:16 T-Sheet-- Draft Copy klr Chart Complete MTDD
== END 2016-10-26 13:56 | disposition home or self-care (01) ==
LOC: M ED 11:47
DX: N93.8 Other specified abnormal uterine and vaginal bleeding (principal); G47.33 Obstructive sleep apnea (adult) (pediatric); K21.9 Gastro-esophageal reflux disease without esophagitis; G93.2 Benign intracranial hypertension